=== PATIENT | female | born 1975 | race Caucasian/White ===

== ENCOUNTER 2021-11-02 09:10 | Emergency (ER) | payer BC ==
[~2021-11-02] VITALS: Ht 165.1 cm; Wt 67.1 kg
[2021-11-02 09:15] VITALS: BP_SYST 134
--- NOTE | 2021-11-02 09:15 | NUR ---
Pt is AAO and ambulatory reporting a headache X 4 days. Pt describes the pain as throbbing and reports that her ears hurt as well. Pt rates pain 7/10 currently. Pt has no prior medical history.
--- NOTE | 2021-11-02 09:15 | NUR ---
Pt to bed 3 for evaluation.
--- NOTE | 2021-11-02 09:36 | NUR ---
BROUGHT BACK TO BED #3 AND REPORT GIVEN TO VIOLETTA
--- NOTE | 2021-11-02 10:05 | NUR ---
PT AMBULATES TO BATHROOM WITH STEADY GAIT TO PROVIDE URINE SAMPLE
--- NOTE | 2021-11-02 10:15 | NUR ---
LAB AT THE BEDSIDE FOR BLOOD DRAW
[2021-11-02 10:23] LABS: BILIRUBIN,URINE NEGATIVE (NEGATIVE); BLOOD, URINE TRACE (NEGATIVE); CLARITY/URINE CLEAR (CLEAR); COLOR,URINE YELLOW (YELLOW); GLUCOSE,URINE NEGATIVE (NEGATIVE); KETONES,URINE NEGATIVE (NEGATIVE); LEUKOCYTE ESTERASE ,URINE NEGATIVE (NEGATIVE); NITRITE, URINE NEGATIVE (NEGATIVE); PROTEIN URINE NEGATIVE (NEGATIVE); UROBILINOGEN,URINE 0.2 (0.2-1.0)
[2021-11-02 10:38] LABS: CALCIUM 9.5 mg/dL (8.4-11.0); CREATININE 0.78 mg/dL (0.55-1.30); POTASSIUM 4.3 mmol/L (3.5-5.1)
[2021-11-02 10:43] LABS: ALBUMIN 3.9 g/dL (3.4-4.8); TOTAL BILIRUBIN 0.2 mg/dL (0.0-1.0)
[2021-11-02 10:54] LABS: BASOPHILS % (AUTO) 0.6 % (0.0-2.0); EOSINOPHILS # (AUTO) 0.1 K/uL (0.0-0.4); EOSINOPHILS % (AUTO) 2.4 % (0.0-4.0); HEMATOCRIT 39.5 % (36-48); LYMPHOCYTES # (AUTO) 2.6 K/uL (1.0-5.5); LYMPHOCYTES % (AUTO) 41.9 % (20.5-51.5); MEAN CORPUSCULAR HEMOGLOBIN 30 pg (27-31); MEAN CORPUSCULAR HGB CONC 33 % (32-36); MEAN CORPUSCULAR VOLUME 92 fL (79.0-98.0); MONOCYTES # (AUTO) 0.5 K/uL (0.0-1.0); MONOCYTES % (AUTO) 8.6 % (1.7-9.3); NEUTROPHILS # (AUTO) 2.9 K/uL (1.8-7.7); NEUTROPHILS % (AUTO) 46.5 % (40.0-70.0); PLATELET COUNT (AUTO) 220 K/uL (130-430); RED BLOOD CELL COUNT(AUTO) 4.29 MIL/uL (4.2-6.2); RED CELL DISTRIBUTION WIDTH 13.7 % (9.0-15.0); WHITE BLOOD COUNT (AUTO) 6.2 K/uL (4.8-10.8)
[2021-11-02 11:05] LABS: BACTERIA,URINE FEW /HPF (None Seen); WBC,URINE NONE SEEN /HPF (0-3)
[2021-11-02] MEDS ORDERED: NAPR-690 PO (11:43)
[2021-11-02 11:49] VITALS: BP_SYST 107
[2021-11-02] MEDS ORDERED: FLUT16SP16 NS (11:49)
--- NOTE | 2021-11-02 11:50 | NUR ---
Patient given written and verbal discharge instructions and verbalizes understanding. ER MD discussed with patient the results and treatment provided. Patient in stable condition. ID arm band removed. Rx of NAPROXEN given. Patient educated on pain management and to follow up with PMD. Pain Scale 0/10. Opportunity for questions provided and answered. Medication side effect fact sheet provided.
== END 2021-11-02 11:50 | disposition home or self-care (01) ==
LOC: SED 09:10
DX: R51.9 Headache, unspecified (principal); H68.009 Unspecified Eustachian salpingitis, unspecified ear; Z88.0 Allergy status to penicillin
CPT/HCPCS: 36415; 70450-TC; 76376; 80053; 81000; 85025; 99284